=== PATIENT | female | born 1955 | race Caucasian/White ===

== ENCOUNTER 2019-05-22 22:55 | Inpatient (IN) | payer MEDICARE, OTHER ==
[2019-05-22] MEDS ORDERED: HEPARIN SODIUM,PORCINE 5,000 UNIT/ML 1 ML VIAL IV ONE (23:40)
[2019-05-22] MEDS ORDERED: HEPARIN SODIUM,PORCINE 5,000 UNIT/ML 1 ML VIAL IV PRN (23:40)
[2019-05-22 23:46] LABS: Glucose,Whole Blood 116 mg/dL (75-99)
[2019-05-22] MEDS ORDERED: SODIUM CHLORIDE 0.9% 1,000 ML IV STA (23:47)
--- NOTE | 2019-05-22 23:51 | ED ---
General Adult HPI - General Chief complaint: Weakness Stated complaint: Weakness Time Seen by Provider: 05/22/19 23:05 Source: EMS Mode of arrival: EMS Limitations: no limitations - History of Present Illness Initial comments: Dictation was produced using Epic[employer] dictation software. please excuse any grammatical, word or spelling errors. Chief Complaint: 63-year-old female with multiple comorbidities presents with weakness. History of Present Illness: Patient is 63-year-old female she was brought in by EMS for weakness. Patient was at home when she slid out of her chair and couldn't get up. Patient's , is a patient reports that he did not have enough strength to pick her back up and put her in the chair. EMS was called. EMS evaluated patient and recommended that she be brought to the emergency department. Patient denies any specific complaints. She feels generally weak. Patient reports that she's been getting weaker and weaker over the last month. 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 Patient has been on Keflex for the last several days as an antibiotic for the wound. reports that her wound at her left hip has been draining more than usual. Patient denies any history of atrial fibrillation. She is not on any anticoagulation medications. Patient has no history of cardiac disease. She was however once told that she had a murmur. She reports that because of her weakness she is unable to go upstairs. She's be en sleeping in a chair for the last month. The ROS documented in this emergency department record has been reviewed and confirmed by me. Those systems with pertinent positive or negative responses have been documented in the HPI. All other systems are other negative and/or noncontributory. PHYSICAL EXAM: General Impression: Alert and oriented x3, not in acute distress, malodorous, disheveled, obese HEENT: Normocephalic atraumatic, extra-ocular movements intact, pupils equal and reactive to light bilaterally, dry mucous membranes Cardiovascular: Irregularly irregular Chest: Lungs clear to auscultation bilaterally, no rhonchi, no wheeze, no rales Abdomen: Bowel sounds present, abdomen soft, non-tender, non-distended, no organomegaly, obese Musculoskeletal: Unable to palpate lower DP or PT pulses because of patient's body habitus Motor: no focal deficits noted Neurological: CN II-XII grossly intact, no focal motor or sensory deficits noted Skin: Hyperpigmented and erythematous rash to the bilateral anterior tibial areas, wound opening to the left hip with packing in place and extrusion of fibrinous tissue Psych: Normal affect and mood ED course: 63-year-old female presents with generalized weakness. Patient is currently undergoing treatment for chronic wounds. She is on antibiotics for these. Upon arrival shows blood pressure 96/40. Patient's history of hypertension and reports that her blood pressure is lower than usual. EKG upon arrival shows atrial fibrillation without rapid ventricular rate. Patient denies any history of panic coagulation medications or dysrhythmia. Patient started on heparin. Patient denies any pain complaints at this time. She denies any chest pain or shortness of breath.Laboratory evaluation obtained. Patient's hemoglobin of 9.3. This is around patient's baseline. Metabolic panel shows anion gap acidosis, patient is creatinine 3.43 with a BUN of 58. Urinalysis obtained showing 1+ ketones with no findings to suggest urinary tract infection. Rest of labs resulted. Coag panel unremarkable. Venous blood gas shows normal pH. Lactic acid level is 1.7. X-ray was reviewed by myself pending radiology read. Patient be admitted for new onset atrial fibrillation, acute kidney injury. This point in infection is part of the differential however less likely. She has pending urine cultures and blood cultures. Patient given intravenous fluid boluses and started on mean maintenance IV fluids. Nephrology be consulted. EKG interpretation: Ventricular rate 89, atrial fibrillation, care is 84, QTc 459. No old EKG for comparison. - Related Data Home Medications Medication Instructions Recorded Confirmed ALPRAZolam [Xanax] 2 mg PO TID PRN 04/11/14 05/22/19 Acetaminophen-Codeine 300-30mg 1 tab PO Q6H PRN 04/11/14 05/22/19 [Tylenol w/codeine #3] Lisinopril 40 mg PO DAILY 04/11/14 05/22/19 metFORMIN HCL 500 mg PO BID 04/11/14 05/22/19 Cephalexin [Keflex] 500 mg PO QID 05/22/19 05/22/19 Cholecalciferol [Vitamin D3 (25 1,000 unit PO DAILY 05/22/19 05/22/19 Mcg = 1000 Iu)] Ferrous Sulfate [Feosol] 325 mg PO BID 05/22/19 05/22/19 Hydrochlorothiazide [Hydrodiuril] 25 mg PO DAILY 05/22/19 05/22/19 Levothyroxine Sodium [Synthroid] 25 mcg PO DAILY 05/22/19 05/22/19 Metoprolol Tartrate [Lopressor] 100 mg PO BID 05/22/19 05/22/19 Sertraline HCl [Zoloft] 75 mg PO DAILY 05/22/19 05/22/19 Allergies Allergy/AdvReac Type Severity Reaction Status Date / Time amoxicillin Allergy Anaphylaxis Verified 05/22/19 23:10 ibuprofen [From Motrin] Allergy Unknown Verified 05/22/19 23:10 Penicillins Allergy Anaphylaxis Verified 05/22/19 23:10 Review of Systems ROS Statement: Those systems with pertinent positive or pertinent negative responses have been documented in the HPI. ROS Other: All systems not noted in ROS Statement are negative. Past Medical History Past Medical History: Diabetes Mellitus, Hypertension Additional Past Medical History / Comment(s): anemia, chronic wound to LLE, History of Any Multi-Drug Resistant Organisms: None Reported Past Surgical History: Cholecystectomy, Orthopedic Surgery Additional Past Surgical History / Comment(s): L femur surgery with sussy insertion, R wrist surgery, I& D to left hip, Past Anesthesia/Blood Transfusion Reactions: No Reported Reaction Past Psychological History: Bipolar Smoking Status: Never smoker Past Alcohol Use History: None Reported Past Drug Use History: None Reported General Exam Limitations: no limitations Course Vital Signs 05/22/19 05/23/19 23:06 00:24 Temperature 98.1 F Pulse Rate 96 75 Respiratory 18 19 Rate Blood Pressure 96/40 106/59 O2 Sat by Pulse 96 99 Oximetry Medical Decision Making - Lab Data Result diagrams: 05/22/19 23:11 05/22/19 23:11 Lab Results 05/22/19 05/22/19 05/22/19 Range/Units 23:11 23:11 23:11 WBC 9.4 (3.8-10.6) k/uL RBC 3.76 L (3.80-5.40) m/uL Hgb 9.3 L (11.4-16.0) gm/dL Hct 30.0 L (34.0-46.0) % MCV 79.9 L (80.0-100.0) fL MCH 24.7 L (25.0-35.0) pg MCHC 31.0 (31.0-37.0) g/dL RDW 16.5 H (11.5-15.5) % Plt Count 339 (150-450) k/uL Neutrophils % 82 % Lymphocytes % 8 % Monocytes % 8 % Eosinophils % 1 % Basophils % 1 % Neutrophils # 7.7 (1.3-7.7) k/uL Lymphocytes # 0.7 L (1.0-4.8) k/uL Monocytes # 0.7 (0-1.0) k/uL Eosinophils # 0.1 (0-0.7) k/uL Basophils # 0.1 (0-0.2) k/uL Hypochromasia Slight Anisocytosis Slight Microcytosis Slight Sodium 139 (137-145) mmol/L Potassium 3.8 (3.5-5.1) mmol/L Chloride 107 (98-107) mmol/L Carbon Dioxide 19 L (22-30) mmol/L Anion Gap 13 mmol/L BUN 58 H (7-17) mg/dL Creatinine 3.43 H (0.52-1.04) mg/dL Est GFR (CKD-EPI)AfAm 15 (>60 ml/min/1.73 sqM) Est GFR (CKD-EPI)NonAf 13 (>60 ml/min/1.73 sqM) Glucose 123 H (74-99) mg/dL POC Glucose (mg/dL) (75-99) mg/dL POC Glu Patch Driller ID Plasma Lactic Acid Ehsan (0.7-2.0) mmol/L Calcium 8.9 (8.4-10.2) mg/dL Total Bilirubin 0.4 (0.2-1.3) mg/dL AST 34 (14-36) U/L ALT 16 (9-52) U/L Alkaline Phosphatase 98 (38-126) U/L Troponin I <0.012 (0.000-0.034) ng/mL Total Protein 6.3 (6.3-8.2) g/dL Albumin 3.0 L (3.5-5.0) g/dL Urine Color Urine Appearance (Clear) Urine pH (5.0-8.0) Ur Specific [place] (1.001-1.035) Urine Protein (Negative) Urine Glucose (UA) (Negative) Urine Ketones (Negative) Urine Blood (Negative) Urine Nitrite (Negative) Urine Bilirubin (Negative) Urine Urobilinogen (<2.0) mg/dL Ur Leukocyte Esterase (Negative) Urine RBC (0-5) /hpf Urine WBC (0-5) /hpf Urine WBC Clumps (None) /hpf Ur Squamous Epith Cells (0-4) /hpf Amorphous Sediment (None) /hpf Urine Bacteria (None) /hpf Hyaline Casts (0-2) /lpf Urine Mucus (None) /hpf 05/22/19 05/22/19 05/22/19 Range/Units 23:11 23:11 23:45 WBC (3.8-10.6) k/uL RBC (3.80-5.40) m/uL Hgb (11.4-16.0) gm/dL Hct (34.0-46.0) % MCV (80.0-100.0) fL MCH (25.0-35.0) pg MCHC (31.0-37.0) g/dL RDW (11.5-15.5) % Plt Count (150-450) k/uL Neutrophils % % Lymphocytes % % Monocytes % % Eosinophils % % Basophils % % Neutrophils # (1.3-7.7) k/uL Lymphocytes # (1.0-4.8) k/uL Monocytes # (0-1.0) k/uL Eosinophils # (0-0.7) k/uL Basophils # (0-0.2) k/uL Hypochromasia Anisocytosis Microcytosis Sodium (137-145) mmol/L Potassium (3.5-5.1) mmol/L Chloride (98-107) mmol/L Carbon Dioxide (22-30) mmol/L Anion Gap mmol/L BUN (7-17) mg/dL Creatinine (0.52-1.04) mg/dL Est GFR (CKD-EPI)AfAm (>60 ml/min/1.73 sqM) Est GFR (CKD-EPI)NonAf (>60 ml/min/1.73 sqM) Glucose (74-99) mg/dL POC Glucose (mg/dL) 116 H (75-99) mg/dL POC Glu Patch Driller ID Maryam Salgado Plasma Lactic Acid Ehsan 1.7 (0.7-2.0) mmol/L Calcium (8.4-10.2) mg/dL Total Bilirubin (0.2-1.3) mg/dL AST (14-36) U/L ALT (9-52) U/L Alkaline Phosphatase (38-126) U/L Troponin I (0.000-0.034) ng/mL Total Protein (6.3-8.2) g/dL Albumin (3.5-5.0) g/dL Urine Color Yellow Urine Appearance Cloudy H (Clear) Urine pH 5.0 (5.0-8.0) Ur Specific [place] 1.027 (1.001-1.035) Urine Protein 1+ H (Negative) Urine Glucose (UA) Negative (Negative) Urine Ketones 1+ H (Negative) Urine Blood Small H (Negative) Urine Nitrite Negative (Negative) Urine Bilirubin 1+ H (Negative) Urine Urobilinogen 6.0 (<2.0) mg/dL Ur Leukocyte Esterase Trace H (Negative) Urine RBC 5 (0-5) /hpf Urine WBC 5 (0-5) /hpf Urine WBC Clumps Rare H (None) /hpf Ur Squamous Epith Cells 9 H (0-4) /hpf Amorphous Sediment Few H (None) /hpf Urine Bacteria Rare H (None) /hpf Hyaline Casts 71 H (0-2) /lpf Urine Mucus Rare H (None) /hpf Disposition Clinical Impression: GARRY (acute kidney injury), New onset atrial fibrillation Disposition: ADMITTED IP TO THIS HOSP Condition: Fair Referrals: Juju Hernandez MD [Primary Care Provider] - 1-2 days Decision Time: 01:13
[2019-05-22 23:57] LABS: Anisocytosis Slight; Basophils # (A) 0.1 k/uL (0-0.2); Basophils % (A) 1 %; Eosinophils # (A) 0.1 k/uL (0-0.7); Eosinophils % (A) 1 %; HGB 9.3 gm/dL (11.4-16.0); Hypochromasia Slight; Lymphocytes # (A) 0.7 k/uL (1.0-4.8); Lymphocytes % (A) 8 %; MCH 24.7 pg (25.0-35.0); MCV 79.9 fL (80.0-100.0); Mean Platelet Volume 7.2; Microcytosis Slight; Monocytes # (A) 0.7 k/uL (0-1.0); Monocytes % (A) 8 %; Neutrophils # (A) 7.7 k/uL (1.3-7.7); Neutrophils % (A) 82 %; Platelet Count 339 k/uL (150-450); RBC 3.76 m/uL (3.80-5.40); RDW 16.5 % (11.5-15.5); WBC 9.4 k/uL (3.8-10.6)
[2019-05-23 00:04] LABS: Amorphous Sediment,Urine Few /hpf; Appearance,Urine Cloudy (Clear); Bacteria,Urine Rare /hpf; Bilirubin,Urine 1+ (Negative); Blood,Urine Small (Negative); Color,Urine Yellow; Glucose,Urine (UA) Negative (Negative); Hyaline Casts,Urine 71 /lpf (0-2); Ketones,Urine 1+ (Negative); Leukocyte Esterase,Urine Trace (Negative); Mucus,Urine Rare /hpf; Nitrite,Urine Negative (Negative); Protein,Urine 1+ (Negative); RBC,Urine 5 /hpf (0-5); Specific Gravity,Urine 1.027 (1.001-1.035); Squamous Epithelial Cell,Urine 9 /hpf (0-4)
[2019-05-23 00:12] LABS: Calcium 8.9 mg/dL (8.4-10.2); Potassium 3.8 mmol/L (3.5-5.1); Total Bilirubin 0.4 mg/dL (0.2-1.3); Total Protein 6.3 g/dL (6.3-8.2)
[2019-05-23 00:52] LABS: VBG PH 7.34 (7.31-7.41)
[2019-05-23] MEDS ORDERED: ONDANSETRON 4 MG/2 ML VIAL IVP PRN (00:57)
[2019-05-23] MEDS ORDERED: ACETAMINOPHEN TAB 325 MG TAB PO PRN (00:57)
[2019-05-23] MEDS ORDERED: NALOXONE 0.4 MG/ML 1 ML VIAL IV PRN (00:57)
[2019-05-23 01:09] LABS: Partial Thromboplastin Time 24.9 sec (22.0-30.0); Prothrombin Time 10.6 sec (9.0-12.0)
--- NOTE | 2019-05-23 01:18 | XR ---
EXAMINATION TYPE: XR chest 2V DATE OF EXAM: 05/23/2019 COMPARISON: NONE HISTORY: Body weakness TECHNIQUE: Frontal and lateral views of the chest are obtained. FINDINGS: There is an enlarged heart. There is no heart failure. Lungs are clear of infiltrate. Ther e are no hilar masses. Costophrenic angles are clear. There are chest leads. IMPRESSION: Cardiomegaly. No active cardiopulmonary disease.
[2019-05-23] MEDS: HEPARIN SOD,PORK IN 0.45% NACL 25,000 UNIT in 0.45% NACL 1 250ML.BAG IV SCH ×2 (01:35→21:07)
[2019-05-23 02:00] LABS: Glucose,Whole Blood 125 mg/dL (75-99)
[2019-05-23 07:32] LABS: Anisocytosis Slight; Basophils # (A) 0.1 k/uL (0-0.2); Basophils % (A) 1 %; Eosinophils # (A) 0.1 k/uL (0-0.7); Eosinophils % (A) 2 %; HCT 26.9 % (34.0-46.0); HGB 8.5 gm/dL (11.4-16.0); Hypochromasia Marked; Lymphocytes # (A) 0.9 k/uL (1.0-4.8); Lymphocytes % (A) 11 %; MCH 25.8 pg (25.0-35.0); MCHC 31.5 g/dL (31.0-37.0); MCV 81.9 fL (80.0-100.0); Mean Platelet Volume 6.8; Monocytes # (A) 0.7 k/uL (0-1.0); Monocytes % (A) 9 %; Neutrophils # (A) 6.4 k/uL (1.3-7.7); Neutrophils % (A) 77 %; Platelet Count 275 k/uL (150-450); RBC 3.28 m/uL (3.80-5.40); RDW 16.6 % (11.5-15.5); WBC 8.3 k/uL (3.8-10.6)
[2019-05-23 07:57] LABS: Calcium 8.2 mg/dL (8.4-10.2); Magnesium 1.9 mg/dL (1.6-2.3); Potassium 3.9 mmol/L (3.5-5.1)
--- NOTE | 2019-05-23 08:47 | P.CRDCN ---
History of Present Illness Consult date: 05/23/19 History of present illness: This is a 63-year-old female who was admitted to the hospital with complaints of extreme weakness. Apparently she fell off the chair yesterday and could not get up. could not help her and called 911. She was subsequently brought to the emergency room. There is no specific complaints of chest pain. She does complain of shortness of breath with any activity. She was found to be in atrial fibrillation with controlled ventricular response. Her blood work showed evidence of renal failure with creatinine in the range of 3.4. She has history of hypertension and also diabetes. She had some ulcers on her hip was she had a plastic surgery. Apparently she has been taking some antibiotics for the last week or so. At the time of my examination patient is in intensive care unit. Patient is lying flat and doesn't seem to be in acute distress. She does have mild edema and also ulcerations the leg. Patient has received IV fluids since admission. Her creatinine has shown some improvement. Chest x-ray showed evidence of cardiomegaly with mild vascular congestion. Her proBNP is elevated. It appears that patient may have cardiomyopathy with chronic CHF and atrial fibrillation. She has been on Lopressor 100 mg by mouth twice a day along with lisinopril and also hydrochlorothiazide. We'll going to resume Lopressor at 50 mg by mouth twice a day and hold both lisinopril and hydrochlorothiazide. Patient is going to have an echocardiogram. Further recommendations depend upon clinical course. A renal consult is also requested. Review of Systems As per the chart Past Medical History Past Medical History: Diabetes Mellitus, Hypertension Additional Past Medical History / Comment(s): anemia, chronic wound to LLE, History of Any Multi-Drug Resistant Organisms: None Reported Past Surgical History: Cholecystectomy, Orthopedic Surgery Additional Past Surgical History / Comment(s): L femur surgery with sussy insertion, R wrist surgery, I& D to left hip, Past Anesthesia/Blood Transfusion Reactions: No Reported Reaction Past Psychological History: No Psychological Hx Reported, Bipolar Smoking Status: Never smoker Past Alcohol Use History: None Reported Past Drug Use History: None Reported - Past Family History Mother Family Medical History: Diabetes Mellitus Additional Family Medical History / Comment(s): polio, Father Family Medical History: Myocardial Infarction ([place]) Additional Family Medical History / Comment(s): at 40 of [place] Medications and Allergies Home Medications Medication Instructions Recorded Confirmed Type ALPRAZolam [Xanax] 2 mg PO TID PRN 04/11/14 05/22/19 History Acetaminophen-Codeine 300-30mg 1 tab PO Q6H PRN 04/11/14 05/22/19 History [Tylenol w/codeine #3] Lisinopril 40 mg PO DAILY 04/11/14 05/22/19 History metFORMIN HCL 500 mg PO BID 04/11/14 05/22/19 History Cephalexin [Keflex] 500 mg PO QID 05/22/19 05/22/19 History Cholecalciferol [Vitamin D3 (25 1,000 unit PO DAILY 05/22/19 05/22/19 History Mcg = 1000 Iu)] Ferrous Sulfate [Feosol] 325 mg PO BID 05/22/19 05/22/19 History Hydrochlorothiazide [Hydrodiuril] 25 mg PO DAILY 05/22/19 05/22/19 History Levothyroxine Sodium [Synthroid] 25 mcg PO DAILY 05/22/19 05/22/19 History Metoprolol Tartrate [Lopressor] 100 mg PO BID 05/22/19 05/22/19 History Sertraline HCl [Zoloft] 75 mg PO DAILY 05/22/19 05/22/19 History Allergies Allergy/AdvReac Type Severity Reaction Status Date / Time amoxicillin Allergy Anaphylaxis Verified 05/22/19 23:10 ibuprofen [From Motrin] Allergy Unknown Verified 05/22/19 23:10 Penicillins Allergy Anaphylaxis Verified 05/22/19 23:10 Physical Exam Vitals: Vital Signs Temp Pulse Pulse Resp BP BP Pulse Ox 05/23/19 06:00 82 34 H 94/81 98 05/23/19 05:00 91 22 75/46 97 05/23/19 04:00 97.7 F 79 20 90/57 05/23/19 03:00 80 15 104/53 05/23/19 02:00 98.0 F 80 22 95/62 97 05/23/19 01:36 97.7 F 76 18 106/48 96 05/23/19 01:32 98.0 F 80 22 104/53 97 05/23/19 00:24 75 19 106/59 99 05/22/19 23:06 98.1 F 96 18 96/40 96 Intake and Output 05/22/19 05/23/19 05/23/19 22:59 06:59 14:59 Intake Total 500 Output Total 200 Balance 300 Intake: IV 500 Sodium Chloride 0.9% 1, 500 000 ml @ 100 mls/hr IV . Q10H [facility] Rx#:[id number] Output: Urine 200 Other: Voiding Method Bedpan Weight 101.151 kg GENERAL EXAM: Patient is alert and oriented and doesn't appear to be in any acute distress HEENT: Normocephalic. Normal reaction of pupils, equal size, normal range of extraocular motion. No erythema or exudates in the throat. NECK: No masses, no nuchal rigidity. CHEST: No chest wall deformity. LUNGS: Diminished breath sounds HEART: S1 and S2 normal with no audible mumurs or gallops. Irregular rhythm ABDOMEN: No hepatosplenomegaly, normal bowel sounds, no guarding or rigidity. SKIN: No rashes CENTRAL NERVOUS SYSTEM: No focal deficits. EXTREMITIES: Ulceration and blistering of the right leg. Patient had plastic surgery in the hip area Results 05/23/19 07:15 05/23/19 07:15 Cardiac Enzymes 05/22/19 05/22/19 Range/Units 23:11 23:11 AST 34 (14-36) U/L Troponin I <0.012 (0.000-0.034) ng/mL Coagulation 05/23/19 05/23/19 Range/Units 00:35 07:15 PT 10.6 (9.0-12.0) sec APTT 24.9 34.0 H (22.0-30.0) sec CBC 05/22/19 05/23/19 Range/Units 23:11 07:15 WBC 9.4 8.3 (3.8-10.6) k/uL RBC 3.76 L 3.28 L (3.80-5.40) m/uL Hgb 9.3 L 8.5 L (11.4-16.0) gm/dL Hct 30.0 L 26.9 L (34.0-46.0) % Plt Count 339 275 (150-450) k/uL Comprehensive Metabolic Panel 05/22/19 05/23/19 Range/Units 23:11 07:15 Sodium 139 139 (137-145) mmol/L Potassium 3.8 3.9 (3.5-5.1) mmol/L Chloride 107 111 H (98-107) mmol/L Carbon Dioxide 19 L 19 L (22-30) mmol/L BUN 58 H 55 H (7-17) mg/dL Creatinine 3.43 H 2.86 H (0.52-1.04) mg/dL Glucose 123 H 106 H (74-99) mg/dL Calcium 8.9 8.2 L (8.4-10.2) mg/dL AST 34 (14-36) U/L ALT 16 (9-52) U/L Alkaline Phosphatase 98 (38-126) U/L Total Protein 6.3 (6.3-8.2) g/dL Albumin 3.0 L (3.5-5.0) g/dL Current Medications Generic Name Dose Route Start Last Admin Trade Name Freq PRN Reason Stop Dose Admin Acetaminophen 650 mg 05/23/19 00:57 Tylenol Tab PO Q6HR PRN Mild Pain or Fever > 100.5 Heparin Sodium (Porcine) 0 unit 05/22/19 23:40 Heparin IV PER PROTOCOL PRN Low PTT Protocol Heparin Sodium/Sodium Chloride 250 mls @ 10.004 mls/hr 05/22/19 23:45 05/23/19 01:35 25,000 unit/ Sodium Chloride IV 9.89 units/kg/hr .Q24H RACHEL 10.004 mls/hr Administration Protocol 9.89 UNITS/KG/HR Sodium Chloride 1,000 mls @ 100 mls/hr 05/23/19 01:00 Saline 0.9% IV .Q10H RACHEL Naloxone HCl 0.2 mg 05/23/19 00:57 Narcan IV Q2M PRN Opioid Reversal Ondansetron HCl 4 mg 05/23/19 00:57 Zofran IVP Q8HR PRN Nausea And Vomiting Pantoprazole Sodium 40 mg 05/23/19 07:30 Protonix PO AC-BRKFST RACHEL Intake and Output 05/22/19 05/23/19 05/23/19 22:59 06:59 14:59 Intake Total 500 Output Total 200 Balance 300 Intake: IV 500 Sodium Chloride 0.9% 1, 500 000 ml @ 100 mls/hr IV . Q10H [facility] Rx#:[id number] Output: Urine 200 Other: Voiding Method Bedpan Weight 101.151 kg 05/23/19 07:15 05/23/19 07:15 EKG Interpretations (text) Atrial fibrillation with controlled ventricular response Assessment and Plan (1) Hypertension Current Visit: Yes Status: Acute Code(s): I10 - ESSENTIAL (PRIMARY) HYPERTENSION SNOMED Code(s): 71204730 (2) GARRY (acute kidney injury) Current Visit: Yes Status: Acute Code(s): N17.9 - ACUTE KIDNEY FAILURE, UNSPECIFIED SNOMED Code(s): 06107423 (3) New onset atrial fibrillation Current Visit: Yes Status: Acute Code(s): I48.91 - UNSPECIFIED ATRIAL FIBRILLATION SNOMED Code(s): 80183547 (4) Anemia Current Visit: No Status: Acute Priority: High Code(s): D64.9 - ANEMIA, UNSPECIFIED SNOMED Code(s): 329613417 (5) Cardiomyopathy Current Visit: Yes Status: Acute Code(s): I42.9 - CARDIOMYOPATHY, UNSPECIFIED SNOMED Code(s): 65188428 Plan: I'll continue with the beta alejandro. Echocardiogram to be done. We'll hold her lisinopril and hydrochlorothiazide. Renal consult. Further recommendations depend upon the clinical course
[2019-05-23] MEDS ORDERED: ALPRAZolam 1 MG TAB PO PRN (09:28)
[2019-05-23] MEDS ORDERED: metFORMIN 500 MG TAB PO SCH (09:30)
[2019-05-23] MEDS: SODIUM CHLORIDE 0.9% 1,000 ML IV SCH ×3 (09:34→20:50)
[2019-05-23] MEDS: CHOLECALCIFEROL 1,000 UNIT TAB PO SCH (09:56)
[2019-05-23] MEDS: FERROUS SULFATE 325 MG TAB PO SCH ×2 (09:56→20:47)
[2019-05-23] MEDS: PANTOPRAZOLE 40 MG TABLET PO SCH (09:56)
[2019-05-23] MEDS: HYDROCHLOROTHIAZIDE 25 MG TAB PO SCH (09:56)
[2019-05-23] MEDS: SERTRALINE 25 MG TAB PO SCH (09:56)
[2019-05-23] MEDS: LEVOTHYROXINE 25 MCG TAB PO SCH (09:56)
[2019-05-23 11:51] LABS: Glucose,Whole Blood 110 mg/dL (75-99)
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
--- NOTE | 2019-05-23 13:59 | US ---
EXAMINATION TYPE: US renals and bladder DATE OF EXAM: 05/23/2019 COMPARISON: NONE CLINICAL HISTORY: renal failure. ICU patient with renal failure EXAM MEASUREMENTS: Right Kidney: 10.3 x 5.1 x 4.0 cm Left Kidney: 10.6 x 5.0 x 4.8 cm Right Kidney: no evidence of hydronephrosis Left Kidney: cystic area mid = 1.5 x 1.7 x 1.6cm Bladder: appears wnl Bilateral Jets seen: no There are probable parapelvic cysts involving the left kidney. There is no evidence of hydronephrosis . IMPRESSION: PROBABLE PARAPELVIC CYSTS, LEFT KIDNEY.
[2019-05-23] MEDS: CEPHALEXIN 500 MG CAP PO SCH ×3 (14:00→20:47)
[2019-05-23 16:53] LABS: Glucose,Whole Blood 99 mg/dL (75-99)
[2019-05-23] MEDS: SODIUM BICARBONATE TAB 650 MG TAB PO SCH ×2 (17:36→20:50)
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
[2019-05-23 20:43] LABS: Glucose,Whole Blood 95 mg/dL (75-99)
[2019-05-23] MEDS: METOPROLOL TARTRATE 50 MG TAB PO SCH (20:46)
[2019-05-24 05:16] LABS: Anisocytosis Slight; Basophils % (A) 0 %; Eosinophils # (A) 0.2 k/uL (0-0.7); Eosinophils % (A) 3 %; HCT 26.4 % (34.0-46.0); HGB 8.3 gm/dL (11.4-16.0); Hypochromasia Marked; Lymphocytes # (A) 0.9 k/uL (1.0-4.8); Lymphocytes % (A) 15 %; MCH 25.7 pg (25.0-35.0); MCHC 31.3 g/dL (31.0-37.0); MCV 82.3 fL (80.0-100.0); Mean Platelet Volume 7.9; Monocytes # (A) 0.4 k/uL (0-1.0); Monocytes % (A) 8 %; Neutrophils % (A) 72 %; Platelet Count 211 k/uL (150-450); Poikilocytosis Slight; RBC 3.21 m/uL (3.80-5.40); RDW 16.2 % (11.5-15.5); WBC 5.6 k/uL (3.8-10.6)
[2019-05-24 05:36] LABS: Potassium 4.2 mmol/L (3.5-5.1)
[2019-05-24] MEDS: Acetaminophen-Codeine 300-30mg TAB PO PRN ×3 (06:21→20:44)
[2019-05-24] MEDS: PANTOPRAZOLE 40 MG TABLET PO SCH (06:21)
[2019-05-24] MEDS: LEVOTHYROXINE 25 MCG TAB PO SCH (06:21)
[2019-05-24] MEDS: SODIUM CHLORIDE 0.9% 1,000 ML IV SCH ×2 (06:25→17:55)
[2019-05-24 06:48] LABS: Glucose,Whole Blood 101 mg/dL (75-99)
[2019-05-24] MEDS: CHOLECALCIFEROL 1,000 UNIT TAB PO SCH (09:11)
[2019-05-24] MEDS: SODIUM BICARBONATE TAB 650 MG TAB PO SCH ×4 (09:11→20:44)
[2019-05-24] MEDS: SERTRALINE 25 MG TAB PO SCH (09:11)
[2019-05-24] MEDS: CEPHALEXIN 500 MG CAP PO SCH (09:11)
[2019-05-24] MEDS: FERROUS SULFATE 325 MG TAB PO SCH ×2 (09:11→20:44)
[2019-05-24] MEDS: HYDROCHLOROTHIAZIDE 25 MG TAB PO SCH (09:12)
[2019-05-24 10:14] LABS: Iron Saturation 5.33 (12.00-45.00)
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
[2019-05-24 11:57] LABS: Glucose,Whole Blood 92 mg/dL (75-99)
[2019-05-24] MEDS: METOPROLOL TARTRATE 50 MG TAB PO SCH (11:57)
--- NOTE | 2019-05-24 12:01 | ECHOF ---
Referral Reason:Chest pain and cardiomyopathy MEASUREMENTS -------- HEIGHT: 152.4 cm WEIGHT: 103.9 kg BP: 93/2 RVIDd: 2.9 cm (< 3.3) IVSd: 1.1 cm (0.6 - 1.1) LVIDd: 5.0 cm (3.9 - 5.3) LVPWd: 1.1 cm (0.6 - 1.1) IVSs: 1.6 cm LVIDs: 3.5 cm LVPWs: 1.3 cm LA Diam: 3.4 cm (2.7 - 3.8) LAESV Index (A-L): 37.04 ml/m Ao Diam: 3.0 cm (2.0 - 3.7) AV Cusp: 1.8 cm (1.5 - 2.6) MV EXCURSION: 12.755 mm (> 18.000) MV EF SLOPE: 93 mm/s (70 - 150) EPSS: 0.8 cm AV maxP.42 mmHg AV meanP.67 mmHg RAP: 15.00 mmHg RVSP: 50.38 mmHg FINDINGS -------- Atrial fibrillation. This was a technically adequate study. The left ventricular size is normal. There is borderline concentric left ventricular hypertrophy. Overall left ventricular systolic function is normal with, an EF between 55 - 60 %. Left ventricul ar fillimg pressure cannot be estimated due to Atrial fibrillation. The right ventricle is normal in size. LA is moderately dilated 34-39 ml/m2 The right atrial size is normal. Interatrial and interventricular septum intact. The aortic valve is trileaflet, and appears structurally normal. No aortic stenosis or regurgitation. The mitral valve leaflets are mildly thickened. [id number] mitral regurgitation is present. Mild tricuspid regurgitation present. There is moderate pulmonary hypertension. The right ventric ular systolic pressure, as measured by Doppler, is 50.38mmHg. Trace/mild (physiologic) pulmonic regurgitation. The aortic root size is normal. The inferior vena cava is dilated with poor inspiratory collapse which is consistent with estimated r ight atrial pressure of 15 mmHg. There is no pericardial effusion. CONCLUSIONS -------- 1. Atrial fibrillation. 2. This was a technically adequate study. 3. The left ventricular size is normal. 4. There is borderline concentric left ventricular hypertrophy. 5. Overall left ventricular systolic function is normal with, an EF between 55 - 60 %. 6. Left ventricular fillimg pressure cannot be estimated due to Atrial fibrillation. 7. LA is moderately dilated 34-39 ml/m2 8. The aortic valve is trileaflet, and appears structurally normal. No aortic stenosis or regurgitati on. 9. The mitral valve leaflets are mildly thickened. 10. Kvxv-sq-okjkoeez mitral regurgitation is present. 11. Mild tricuspid regurgitation present. 12. There is moderate pulmonary hypertension. 13. Trace/mild (physiologic) pulmonic regurgitation. 14. The aortic root size is normal. 15. The inferior vena cava is dilated with poor inspiratory collapse which is consistent with estimat ed right atrial pressure of 15 mmHg. 16. There is no pericardial effusion. INTEGRATION LEAD: Yamilet Tucker RDCS
[2019-05-24 12:10] LABS: Glucose,Whole Blood 108 mg/dL (75-99)
[2019-05-24] MEDS: INSULIN ASPART (NovoLOG) 100 UNIT/ML VIAL SQ SCH ×3 (13:05→20:28)
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
--- NOTE | 2019-05-24 16:50 | P.PN ---
Subjective Progress Note Date: 05/24/19 This is a 63-year-old female with history of diabetes and hypertension who was brought to the hospital with extreme weakness. She was found to be in atrial fibrillation with controlled and corresponds and also had evidence of acute renal failure. Patient also seemed to be dehydrated. She is also has some ulcers in the legs. She seemed to be much more comfortable today. Her heart rate is controlled. Her blood pressure is borderline. We'll going Back the dose of the metoprolol to 25 mg by mouth twice a day. Her echo showed good LV function. We'll continue rest of the management. No further cardiac workup at this time. She is also on anticoagulation therapy Objective - Vital Signs Vital signs: Vital Signs Temp 97.9 F 05/24/19 16:00 Pulse 63 05/24/19 16:00 Resp 18 05/24/19 16:00 BP 97/54 05/24/19 16:00 Pulse Ox 99 05/24/19 16:00 Intake & Output 05/23/19 05/24/19 05/24/19 18:59 06:59 18:59 Intake Total 2112.535 7098.325 800 Output Total 200 100 400 Balance 1079.699 960.325 400 Weight 104 kg Intake: IV 1200 800 800 Sodium Chloride 0.9% 1, 1200 800 800 000 ml @ 100 mls/hr IV . Q10H RACHEL Rx#:[id number] Intake, IV Titration 79.699 260.325 Amount Heparin Sod,Pork in 0.45% 79.699 260.325 NaCl 25,000 unit In 0.45 % NaCl 1 250ml.bag @ 9.89 UNITS/KG/HR 10.004 mls/ hr IV .Q24H RACHEL Rx#: [id number] Output: Urine 200 100 400 Other: Voiding Method Incontinent Incontinent Incontinent # Voids 1 1 # Bowel Movements 1 - Exam GENERAL EXAM: Patient is alert and oriented and doesn't appear to be in any acute distress HEENT: Normocephalic. Normal reaction of pupils, equal size, normal range of extraocular motion. No erythema or exudates in the throat. NECK: No masses, no nuchal rigidity. CHEST: No chest wall deformity. LUNGS: Equal air entry with no crackles or wheeze. HEART: S1 and S2 normal with no audible mumurs or gallops. Regular rhythm, femorals equal on both sides.. ABDOMEN: No hepatosplenomegaly, normal bowel sounds, no guarding or rigidity. SKIN: No rashes CENTRAL NERVOUS SYSTEM: No focal deficits. EXTREMITIES: Ulcers present - Labs CBC & Chem 7: 05/24/19 04:26 05/24/19 04:26 Labs: Abnormal Lab Results - Last 24 Hours (Table) 05/23/19 05/23/19 05/24/19 Range/Units 15:15 17:55 04:26 RBC 3.21 L (3.80-5.40) m/uL Hgb 8.3 L (11.4-16.0) gm/dL Hct 26.4 L (34.0-46.0) % RDW 16.2 H (11.5-15.5) % Lymphocytes # 0.9 L (1.0-4.8) k/uL APTT (22.0-30.0) sec Chloride (98-107) mmol/L Carbon Dioxide (22-30) mmol/L BUN (7-17) mg/dL Creatinine (0.52-1.04) mg/dL POC Glucose (mg/dL) (75-99) mg/dL Calcium (8.4-10.2) mg/dL Iron 12 L (50-170) ug/dL TIBC 225 L (228-460) ug/dL Iron Saturation 5.33 L (12.00-45.00) U Random Total Protein 29 H (<12) mg/dL 05/24/19 05/24/19 05/24/19 Range/Units 04:26 04:26 06:44 RBC (3.80-5.40) m/uL Hgb (11.4-16.0) gm/dL Hct (34.0-46.0) % RDW (11.5-15.5) % Lymphocytes # (1.0-4.8) k/uL APTT 46.3 H (22.0-30.0) sec Chloride 113 H (98-107) mmol/L Carbon Dioxide 19 L (22-30) mmol/L BUN 49 H (7-17) mg/dL Creatinine 2.10 H (0.52-1.04) mg/dL POC Glucose (mg/dL) 101 H (75-99) mg/dL Calcium 8.0 L (8.4-10.2) mg/dL Iron (50-170) ug/dL TIBC (228-460) ug/dL Iron Saturation (12.00-45.00) U Random Total Protein (<12) mg/dL 05/24/19 05/24/19 Range/Units 11:18 12:07 RBC (3.80-5.40) m/uL Hgb (11.4-16.0) gm/dL Hct (34.0-46.0) % RDW (11.5-15.5) % Lymphocytes # (1.0-4.8) k/uL APTT 58.5 H (22.0-30.0) sec Chloride (98-107) mmol/L Carbon Dioxide (22-30) mmol/L BUN (7-17) mg/dL Creatinine (0.52-1.04) mg/dL POC Glucose (mg/dL) 108 H (75-99) mg/dL Calcium (8.4-10.2) mg/dL Iron (50-170) ug/dL TIBC (228-460) ug/dL Iron Saturation (12.00-45.00) U Random Total Protein (<12) mg/dL Microbiology - Last 24 Hours (Table) 05/23/19 10:30 Gram Stain - Preliminary Hip - Left Wound Culture - Preliminary Gram Neg Bacilli 05/23/19 10:30 Gram Stain - Preliminary Leg - Left Wound Culture - Preliminary Pseudomonas spec 05/22/19 00:35 Blood Culture - Preliminary Blood No Growth after 24 hours 05/23/19 17:55 Urine Culture - Preliminary Urine,Catheterized 05/23/19 10:30 Anaerobic Culture - Preliminary Leg - Left 05/23/19 10:30 Anaerobic Culture - Preliminary Hip - Left Assessment and Plan (1) Hypertension Current Visit: Yes Status: Acute Code(s): I10 - ESSENTIAL (PRIMARY) HYPERTENSION SNOMED Code(s): 61315519 (2) GARRY (acute kidney injury) Current Visit: Yes Status: Acute Code(s): N17.9 - ACUTE KIDNEY FAILURE, UNSPECIFIED SNOMED Code(s): 02630303 (3) New onset atrial fibrillation Current Visit: Yes Status: Acute Code(s): I48.91 - UNSPECIFIED ATRIAL FIBRILLATION SNOMED Code(s): 70212086 (4) Anemia Current Visit: No Status: Acute Priority: High Code(s): D64.9 - ANEMIA, UNSPECIFIED SNOMED Code(s): 268044691 (5) Cardiomyopathy Current Visit: Yes Status: Acute Code(s): I42.9 - CARDIOMYOPATHY, UNSPECIFIED SNOMED Code(s): 19605267 Plan: Patient is currently stable from cardiac standpoint. Heart rate is controlled. Echo showed normal LV function. We'll continue current cardiac medications
[2019-05-24] MEDS ORDERED: HYDROPHILIC CREAM 180 GM TUBE TOPICAL SCH (17:00)
[2019-05-24 17:21] LABS: Glucose,Whole Blood 105 mg/dL (75-99)
[2019-05-24] MEDS: CEFEPIME 2 GM in SODIUM CHLORIDE 0.9% 100 ML IVPB SCH (17:54)
[2019-05-24] MEDS: APIXABAN 2.5 MG TABLET PO SCH (18:48)
--- NOTE | 2019-05-24 19:01 | PN ---
PROGRESS NOTE The patient is seen for followup for acute kidney injury. Her renal function is slightly improved. The patient's creatinine is down from 3.4 to 2.1 mg/dL. Previous creatinine was 0.7 in April of 2014. The patient has had good urine output. She is maintained on IV fluids at 100 mL an hour. She is eating. No complaints of nausea or vomiting. PHYSICAL EXAMINATION: On examination, blood pressure was 100/54, heart rate 76 per minute. She is afebrile. Examination of the heart S1, S2. Examination of the lungs, bilateral breath sounds are heard. Abdomen is soft, nontender. Examination lower extremities shows no significant edema. GLASS PRESSER exam grossly intact. LABS: Hemoglobin 8.3. Sodium 138, potassium 4.2, chloride 113, CO2 is 19, BUN 49, serum creatinine 2.1. ASSESSMENT: 1. Acute kidney injury associated with atrial fibrillation, hypotension, hypoperfusion currently improving. A prerenal component also noted from hypovolemia. The patient is maintained on IV fluids. I will decrease the rate to about 60 mL an hour. She is advised to continue to maintain good oral intake. 2. Possible underlying chronic kidney disease. Previous creatinine 0.7 in 2013, but UA shows evidence of proteinuria. 3. Type 2 diabetes. 4. Recent surgery for ulcer on the left hip with an open wound being followed by Infectious Disease. 5. Anemia. Iron saturation was 9% in 2013 and about 5% from yesterday. We will give her IV iron once this infection is controlled. PLAN: Decrease IV fluids, maintain good oral intake, IV iron in the next day or so, once the infection is controlled as we would like to avoid IV iron with ongoing active infections. MMODL / IJN: [id number] /
[2019-05-24 20:38] LABS: Glucose,Whole Blood 112 mg/dL (75-99)
[2019-05-24] MEDS: METOPROLOL TARTRATE 25 MG TAB PO SCH (20:44)
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
[2019-05-25 05:10] LABS: Basophils # (A) 0.1 k/uL (0-0.2); Basophils % (A) 1 %; Eosinophils # (A) 0.2 k/uL (0-0.7); Eosinophils % (A) 4 %; HGB 8.3 gm/dL (11.4-16.0); Hypochromasia Marked; Lymphocytes # (A) 0.5 k/uL (1.0-4.8); Lymphocytes % (A) 10 %; MCH 25.4 pg (25.0-35.0); MCHC 30.6 g/dL (31.0-37.0); MCV 83.2 fL (80.0-100.0); Mean Platelet Volume 7.7; Monocytes # (A) 0.3 k/uL (0-1.0); Monocytes % (A) 5 %; Neutrophils # (A) 4.5 k/uL (1.3-7.7); Neutrophils % (A) 80 %; Platelet Count 243 k/uL (150-450); Poikilocytosis Slight; RBC 3.25 m/uL (3.80-5.40); WBC 5.6 k/uL (3.8-10.6)
[2019-05-25] MEDS: PANTOPRAZOLE 40 MG TABLET PO SCH (05:18)
[2019-05-25] MEDS: LEVOTHYROXINE 25 MCG TAB PO SCH (05:19)
[2019-05-25] MEDS: CEFEPIME 2 GM in SODIUM CHLORIDE 0.9% 100 ML IVPB SCH (05:19)
[2019-05-25 05:23] LABS: Calcium 8.4 mg/dL (8.4-10.2); Potassium 4.4 mmol/L (3.5-5.1)
[2019-05-25] MEDS: INSULIN ASPART (NovoLOG) 100 UNIT/ML VIAL SQ SCH ×4 (06:55→20:52)
[2019-05-25 07:03] LABS: Glucose,Whole Blood 120 mg/dL (75-99)
[2019-05-25] MEDS: APIXABAN 2.5 MG TABLET PO SCH (08:45)
[2019-05-25] MEDS: SODIUM BICARBONATE TAB 650 MG TAB PO SCH ×4 (08:45→20:58)
[2019-05-25] MEDS: HYDROCHLOROTHIAZIDE 25 MG TAB PO SCH (08:45)
[2019-05-25] MEDS: METOPROLOL TARTRATE 25 MG TAB PO SCH ×2 (08:45→20:58)
[2019-05-25] MEDS: FERROUS SULFATE 325 MG TAB PO SCH ×2 (08:45→20:58)
[2019-05-25] MEDS: SERTRALINE 25 MG TAB PO SCH (08:45)
[2019-05-25] MEDS: CHOLECALCIFEROL 1,000 UNIT TAB PO SCH (08:45)
[2019-05-25] MEDS ORDERED: APIXABAN 5 MG TAB PO ONE (10:00)
--- NOTE | 2019-05-25 11:30 | PN ---
PROGRESS NOTE Patient is seen for followup for acute kidney injury. Renal function is improving. Patient's IV fluids were decreased yesterday to about 60 mL an hour. She is tolerating oral intake. PHYSICAL EXAMINATION: Blood pressure 118/99, heart rate 71 per minute. She is afebrile. Examination of the heart S1, S2. Examination of the lungs, bilateral breath sounds are heard. Abdomen is soft, nontender, obese. Examination of the lower extremities shows no significant edema. LABS: Show sodium 142, potassium 4.0, chloride 112, BUN 40, serum creatinine 1.7, hemoglobin 8.3 g/dL. ASSESSMENT: 1. Acute kidney injury, acute tubular necrosis, currently improving. IV fluids were decreased. I will continue with 60 mL/hour for now and then DC IV fluids tomorrow. 2. Urinary tract infection. Urine culture growing gram-negative bacilli. Maintained on antibiotics. 3. Recent surgery for ulcer on left hip with open wound, maintained on antibiotics, being followed by ID. 4. Anemia with severe iron deficiency. Will give her a dose of IV iron tomorrow. PLAN: IV iron in a.m. Continue antibiotics. Continue the saline for now. Encourage increased oral intake. MMODL / IJN: [id number] /
[2019-05-25 12:52] LABS: Glucose,Whole Blood 126 mg/dL (75-99)
--- NOTE | 2019-05-25 15:11 | P.PN ---
Subjective Patient is a pleasant 58-year-old female was admitted and is being treated for pseudomonal wound infection and possible urinary tract infection which is showing gram-negative bacilli along with new onset atrial fibrillation and acute renal failure with creatinine of 3.43 on admission came down to 1.77 with normal baseline of 0.65. Patient appears to be quite tight week and is complaining of some dizziness. Patient's heart rate is well controlled and patient was started on oral anti-coagulation. Constitutional: Is severely fatigued Cardio vascular: denied any chest pain, palpitations Gastrointestinal denied any nausea vomiting Pulmonary: Denied any shortness of breath cough Neurologic denied any new focal deficits All inpatient medications were reviewed and appropriate changes in these medications as dictated in the interval history and assessment and plan. Objective - Vital Signs Vital signs: Vital Signs Temp 98.3 F 05/25/19 08:00 Pulse 76 05/25/19 12:00 Resp 22 05/25/19 12:00 BP 97/55 05/25/19 12:00 Pulse Ox 89 L 05/25/19 12:00 Intake & Output 05/24/19 05/25/19 05/25/19 18:59 06:59 18:59 Intake Total 1180.481 462 Output Total 800 200 200 Balance 380.481 -200 262 Weight 107 kg Intake: IV 1040 240 Sodium Chloride 0.9% 1, 1040 240 000 ml @ 60 mls/hr IV . [id number] [facility] Rx#:[id number] Intake, IV Titration 140.481 Amount Heparin Sod,Pork in 0.45% 140.481 NaCl 25,000 unit In 0.45 % NaCl 1 250ml.bag @ 9.89 UNITS/KG/HR 10.004 mls/ hr IV .Q24H [facility] Rx#: [id number] Oral 222 Output: Urine 800 200 200 Other: Voiding Method Incontinent Incontinent Incontinent # Bowel Movements 1 - Exam GEN. APPEARANCE: Obese. It appears to be lethargic HEAD EXAM: atraumatic, normocephalic, normal inspection EYE EXAM: No pallor. No icterus. white discharge at the corners of the eyes noticed ENT EXAM: Poor oral hygiene. Multiple dental caries. NECK EXAM: No thyromegaly. RESPIRATORY EXAM: Bilateral breath sounds are positive. No wheezing or crackles. CARDIOVASCULAR EXAM: Irregularly irregular. S1 and S2 heard. GI/ABDOMINAL EXAM: soft, normal bowel sounds. Absent: distended, tenderness, guarding, rebound, rigid. Excoriation of the skin in both inguinal areas. EXTREMITIES EXAM: Left lower leg - an ulcer of left thigh 11 X 4 x 3 cm seen on the lateral side of the thigh. No surrounding redness or erythema. No active discharge. Hyperpigmented pinkish discoloration of the skin on the medial side of the left leg. No pedal edema. NEUROLOGICAL EXAM: alert, oriented X3, no focal deficits. - Labs CBC & Chem 7: 05/25/19 04:02 05/25/19 04:02 Labs: Abnormal Lab Results - Last 24 Hours (Table) 05/24/19 05/24/19 05/25/19 Range/Units 16:54 20:12 04:02 RBC 3.25 L (3.80-5.40) m/uL Hgb 8.3 L (11.4-16.0) gm/dL Hct 27.0 L (34.0-46.0) % MCHC 30.6 L (31.0-37.0) g/dL RDW 16.0 H (11.5-15.5) % Lymphocytes # 0.5 L (1.0-4.8) k/uL Chloride (98-107) mmol/L BUN (7-17) mg/dL Creatinine (0.52-1.04) mg/dL Glucose (74-99) mg/dL POC Glucose (mg/dL) 105 H 112 H (75-99) mg/dL 05/25/19 05/25/19 05/25/19 Range/Units 04:02 06:49 12:26 RBC (3.80-5.40) m/uL Hgb (11.4-16.0) gm/dL Hct (34.0-46.0) % MCHC (31.0-37.0) g/dL RDW (11.5-15.5) % Lymphocytes # (1.0-4.8) k/uL Chloride 112 H (98-107) mmol/L BUN 40 H (7-17) mg/dL Creatinine 1.77 H (0.52-1.04) mg/dL Glucose 107 H (74-99) mg/dL POC Glucose (mg/dL) 120 H 126 H (75-99) mg/dL Microbiology - Last 24 Hours (Table) 05/23/19 10:30 Anaerobic Culture - Preliminary Leg - Left 05/23/19 10:30 Anaerobic Culture - Preliminary Hip - Left 05/23/19 10:30 Gram Stain - Final Hip - Left Wound Culture - Final Pseudomonas aeruginosa 05/23/19 10:30 Gram Stain - Final Leg - Left Wound Culture - Final Pseudomonas aeruginosa 05/22/19 00:35 Blood Culture - Preliminary Blood No Growth after 48 hours 05/23/19 17:55 Urine Culture - Preliminary Urine,Catheterized Gram Neg Bacilli Assessment and Plan Plan: -Hypotension: Probably secondary to hypovolemia and sepsis cannot be ruled out as well. Patient will be can you done IV fluids nephrology is following the p atient kidney function is improving at this time blood pressure improved. -Possible sepsis secondary to either an infection or urinary tract infection with gram negative bacilli in the urine and patient has Pseudomonas in the wound patient is presently on cefepime disease will be continued infectious disease is following the patient -New-onset atrial fibrillation continue with anticoagulation patient is heart rate controlled -Deconditioning because of above-mentioned medical problems patient probably will need placement to subacute rehabilitation PT and OT with was consult that. Chronic ulcer of the left thigh Chronic venous stasis Morbid obesity with BMI of 43.6 Chronic debility
[2019-05-25] MEDS: SODIUM CHLORIDE 0.9% 1,000 ML IV SCH (16:02)
--- NOTE | 2019-05-25 17:08 | P.PN ---
Subjective Progress Note Date: 05/25/19 This is a 63-year-old female with history of diabetes and hypertension who was brought to the hospital with extreme weakness. She was found to be in atrial fibrillation with controlled and corresponds and also had evidence of acute renal failure. Patient also seemed to be dehydrated. She is also has some ulcers in the legs. She seemed to be much more comfortable today. Her heart rate is controlled. Her blood pressure is borderline. We'll going Back the dose of the metoprolol to 25 mg by mouth twice a day. Her echo showed good LV function. We'll continue rest of the management. No further cardiac workup at this time. She is also on anticoagulation therapy. 05/25/2019: This patient with history of diabetes, hypertension who was admitted to the hospital with possible sepsis, UTI, and also wound infection. She was found to be in atrial fibrillation. Her heart rate is controlled. Patient is being initiated on Eliquis is 5 mg by mouth twice a day. Rest of the management to be continued. Her LV function is preserved. We'll follow Objective - Vital Signs Vital signs: Vital Signs Temp 98.3 F 05/25/19 08:00 Pulse 76 05/25/19 12:00 Resp 22 05/25/19 12:00 BP 97/55 05/25/19 12:00 Pulse Ox 89 L 05/25/19 12:00 Intake & Output 05/24/19 05/25/19 05/25/19 18:59 06:59 18:59 Intake Total 1180.481 462 Output Total 800 200 200 Balance 380.481 -200 262 Weight 107 kg Intake: IV 1040 240 Sodium Chloride 0.9% 1, 1040 240 000 ml @ 60 mls/hr IV . [id number] [facility] Rx#:[id number] Intake, IV Titration 140.481 Amount Heparin Sod,Pork in 0.45% 140.481 NaCl 25,000 unit In 0.45 % NaCl 1 250ml.bag @ 9.89 UNITS/KG/HR 10.004 mls/ hr IV .Q24H [facility] Rx#: [id number] Oral 222 Output: Urine 800 200 200 Other: Voiding Method Incontinent Incontinent Incontinent # Bowel Movements 1 - Exam GENERAL EXAM: Patient is alert and oriented and doesn't appear to be in any acute distress HEENT: Normocephalic. Normal reaction of pupils, equal size, normal range of extraocular motion. No erythema or exudates in the throat. NECK: No masses, no nuchal rigidity. CHEST: No chest wall deformity. LUNGS: Equal air entry with no crackles or wheeze. HEART: S1 and S2 normal with no audible mumurs or gallops. Regular rhythm, femorals equal on both sides.. ABDOMEN: No hepatosplenomegaly, normal bowel sounds, no guarding or rigidity. SKIN: No rashes CENTRAL NERVOUS SYSTEM: No focal deficits. EXTREMITIES: Ulcers present - Labs CBC & Chem 7: 05/25/19 04:02 05/25/19 04:02 Labs: Abnormal Lab Results - Last 24 Hours (Table) 05/24/19 05/24/19 05/25/19 Range/Units 16:54 20:12 04:02 RBC 3.25 L (3.80-5.40) m/uL Hgb 8.3 L (11.4-16.0) gm/dL Hct 27.0 L (34.0-46.0) % MCHC 30.6 L (31.0-37.0) g/dL RDW 16.0 H (11.5-15.5) % Lymphocytes # 0.5 L (1.0-4.8) k/uL Chloride (98-107) mmol/L BUN (7-17) mg/dL Creatinine (0.52-1.04) mg/dL Glucose (74-99) mg/dL POC Glucose (mg/dL) 105 H 112 H (75-99) mg/dL 05/25/19 05/25/19 05/25/19 Range/Units 04:02 06:49 12:26 RBC (3.80-5.40) m/uL Hgb (11.4-16.0) gm/dL Hct (34.0-46.0) % MCHC (31.0-37.0) g/dL RDW (11.5-15.5) % Lymphocytes # (1.0-4.8) k/uL Chloride 112 H (98-107) mmol/L BUN 40 H (7-17) mg/dL Creatinine 1.77 H (0.52-1.04) mg/dL Glucose 107 H (74-99) mg/dL POC Glucose (mg/dL) 120 H 126 H (75-99) mg/dL Microbiology - Last 24 Hours (Table) 05/23/19 10:30 Anaerobic Culture - Preliminary Leg - Left 05/23/19 10:30 Anaerobic Culture - Preliminary Hip - Left 05/23/19 10:30 Gram Stain - Final Hip - Left Wound Culture - Final Pseudomonas aeruginosa 05/23/19 10:30 Gram Stain - Final Leg - Left Wound Culture - Final Pseudomonas aeruginosa 05/22/19 00:35 Blood Culture - Preliminary Blood No Growth after 48 hours 05/23/19 17:55 Urine Culture - Preliminary Urine,Catheterized Gram Neg Bacilli Assessment and Plan (1) Hypertension Current Visit: Yes Status: Acute Code(s): I10 - ESSENTIAL (PRIMARY) HYPERTENSION SNOMED Code(s): 66035040 (2) GARRY (acute kidney injury) Current Visit: Yes Status: Acute Code(s): N17.9 - ACUTE KIDNEY FAILURE, UNSPECIFIED SNOMED Code(s): 68618586 (3) New onset atrial fibrillation Current Visit: Yes Status: Acute Code(s): I48.91 - UNSPECIFIED ATRIAL FIBRILLATION SNOMED Code(s): 57386548 (4) Anemia Current Visit: No Status: Acute Priority: High Code(s): D64.9 - ANEMIA, UNSPECIFIED SNOMED Code(s): 997341166 (5) Cardiomyopathy Current Visit: Yes Status: Acute Code(s): I42.9 - CARDIOMYOPATHY, UNSPECIFIED SNOMED Code(s): 05325146 Plan: Patient's heart rate is controlled. We'll continue anti-cognition therapy. 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
[2019-05-25 17:09] LABS: Glucose,Whole Blood 110 mg/dL (75-99)
[2019-05-25 17:09] LABS: Glucose,Whole Blood 99 mg/dL (75-99)
[2019-05-25 20:27] LABS: Glucose,Whole Blood 98 mg/dL (75-99)
[2019-05-25] MEDS: APIXABAN 5 MG TAB PO SCH (20:58)
[2019-05-25] MEDS: Acetaminophen-Codeine 300-30mg TAB PO PRN (20:58)
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
[2019-05-26 03:52] LABS: Hemoglobin A1C 5.6 % (4.0-6.0)
[2019-05-26 05:36] LABS: Anisocytosis Slight; Basophils % (A) 0 %; Eosinophils # (A) 0.3 k/uL (0-0.7); Eosinophils % (A) 4 %; HCT 28.2 % (34.0-46.0); HGB 8.3 gm/dL (11.4-16.0); Hypochromasia Marked; Lymphocytes # (A) 0.7 k/uL (1.0-4.8); Lymphocytes % (A) 11 %; MCH 25.4 pg (25.0-35.0); MCHC 29.4 g/dL (31.0-37.0); MCV 86.3 fL (80.0-100.0); Mean Platelet Volume 7.3; Monocytes # (A) 0.4 k/uL (0-1.0); Monocytes % (A) 6 %; Neutrophils # (A) 4.6 k/uL (1.3-7.7); Neutrophils % (A) 77 %; Platelet Count 265 k/uL (150-450); Poikilocytosis Slight; RBC 3.27 m/uL (3.80-5.40)
[2019-05-26 05:43] LABS: Calcium 8.4 mg/dL (8.4-10.2); Potassium 4.3 mmol/L (3.5-5.1)
[2019-05-26] MEDS: LEVOTHYROXINE 25 MCG TAB PO SCH (06:37)
[2019-05-26] MEDS: CEFEPIME 2 GM in SODIUM CHLORIDE 0.9% 100 ML IVPB SCH (06:38)
[2019-05-26 06:44] LABS: Glucose,Whole Blood 107 mg/dL (75-99)
[2019-05-26] MEDS: INSULIN ASPART (NovoLOG) 100 UNIT/ML VIAL SQ SCH ×4 (06:46→22:15)
[2019-05-26] MEDS: SERTRALINE 25 MG TAB PO SCH (08:36)
[2019-05-26] MEDS: Acetaminophen-Codeine 300-30mg TAB PO PRN ×2 (08:37→13:25)
[2019-05-26] MEDS: PANTOPRAZOLE 40 MG TABLET PO SCH (08:38)
[2019-05-26] MEDS: APIXABAN 5 MG TAB PO SCH ×2 (08:38→22:19)
[2019-05-26] MEDS: METOPROLOL TARTRATE 25 MG TAB PO SCH ×2 (08:38→22:19)
[2019-05-26] MEDS: CHOLECALCIFEROL 1,000 UNIT TAB PO SCH (08:39)
[2019-05-26] MEDS: FERROUS SULFATE 325 MG TAB PO SCH ×2 (08:39→22:19)
[2019-05-26] MEDS: SODIUM BICARBONATE TAB 650 MG TAB PO SCH ×4 (08:40→22:19)
--- NOTE | 2019-05-26 09:07 | P.PN ---
Subjective Progress Note Date: 05/26/19 This is a 63-year-old female with history of diabetes and hypertension who was brought to the hospital with extreme weakness. She was found to be in atrial fibrillation with controlled and corresponds and also had evidence of acute renal failure. Patient also seemed to be dehydrated. She is also has some ulcers in the legs. She seemed to be much more comfortable today. Her heart rate is controlled. Her blood pressure is borderline. We'll going Back the dose of the metoprolol to 25 mg by mouth twice a day. Her echo showed good LV function. We'll continue rest of the management. No further cardiac workup at this time. She is also on anticoagulation therapy. 05/25/2019: This patient with history of diabetes, hypertension who was admitted to the hospital with possible sepsis, UTI, and also wound infection. She was found to be in atrial fibrillation. Her heart rate is controlled. Patient is being initiated on Eliquis is 5 mg by mouth twice a day. Rest of the management to be continued. Her LV function is preserved. We'll follow. 05/26/2019: This patient is admitted to the hospital with sepsis, UTI, and wound infection. She was also found to be in atrial fibrillation with controlled ventricular response, which is a new diagnosis. Her rate is controlled. Patient also had acute renal failure which has improved and her creatinine has come down to 1.4. She is on anticoagulation therapy at this time. Her echo showed good LV function. Patient can continue current medical therapy. From Cardec standpoint. When medically stable, patient could be discharged home. Follow-up as an outpatient Objective - Vital Signs Vital signs: Vital Signs Temp 98.2 F 05/26/19 08:00 Pulse 76 05/26/19 08:00 Resp 20 05/26/19 08:00 BP 127/79 05/26/19 08:00 Pulse Ox 98 05/26/19 08:00 Intake & Output 05/25/19 05/26/19 05/26/19 18:59 06:59 18:59 Intake Total 1222 320 Output Total 600 800 Balance 622 -480 Weight 107 kg Intake: IV 600 60 Sodium Chloride 0.9% 1, 600 60 000 ml @ 60 mls/hr IV . [id number] [facility] Rx#:[id number] Intake, IV Titration 260 Amount Cefepime 2 gm In Sodium 200 Chloride 0.9% 100 ml @ 200 mls/hr IVPB Q24HR@ 0600 [facility] Rx#:[id number] Sodium Chloride 0.9% 1, 60 000 ml @ 60 mls/hr IV . [id number] [facility] Rx#:[id number] Oral 622 Output: Urine 600 800 Other: Voiding Method Incontinent Incontinent - Exam GENERAL EXAM: Patient is alert and oriented and doesn't appear to be in any acute distress HEENT: Normocephalic. Normal reaction of pupils, equal size, normal range of extraocular motion. No erythema or exudates in the throat. NECK: No masses, no nuchal rigidity. CHEST: No chest wall deformity. LUNGS: Equal air entry with no crackles or wheeze. HEART: S1 and S2 normal with no audible mumurs or gallops. Regular rhythm, femorals equal on both sides.. ABDOMEN: No hepatosplenomegaly, normal bowel sounds, no guarding or rigidity. SKIN: No rashes CENTRAL NERVOUS SYSTEM: No focal deficits. EXTREMITIES: Ulcers present - Labs CBC & Chem 7: 05/26/19 04:42 05/26/19 04:46 Labs: Abnormal Lab Results - Last 24 Hours (Table) 05/25/19 05/25/19 05/26/19 Range/Units 12:26 16:55 04:42 RBC 3.27 L (3.80-5.40) m/uL Hgb 8.3 L (11.4-16.0) gm/dL Hct 28.2 L (34.0-46.0) % MCHC 29.4 L (31.0-37.0) g/dL RDW 16.0 H (11.5-15.5) % Lymphocytes # 0.7 L (1.0-4.8) k/uL Chloride (98-107) mmol/L Carbon Dioxide (22-30) mmol/L BUN (7-17) mg/dL Creatinine (0.52-1.04) mg/dL POC Glucose (mg/dL) 126 H 110 H (75-99) mg/dL 05/26/19 05/26/19 Range/Units 04:46 06:42 RBC (3.80-5.40) m/uL Hgb (11.4-16.0) gm/dL Hct (34.0-46.0) % MCHC (31.0-37.0) g/dL RDW (11.5-15.5) % Lymphocytes # (1.0-4.8) k/uL Chloride 111 H (98-107) mmol/L Carbon Dioxide 20 L (22-30) mmol/L BUN 30 H (7-17) mg/dL Creatinine 1.46 H (0.52-1.04) mg/dL POC Glucose (mg/dL) 107 H (75-99) mg/dL Microbiology - Last 24 Hours (Table) 05/22/19 00:35 Blood Culture - Preliminary Blood No Growth after 72 hours 05/23/19 17:55 Urine Culture - Final Urine,Catheterized Pseudomonas aeruginosa 05/23/19 10:30 Anaerobic Culture - Preliminary Leg - Left 05/23/19 10:30 Anaerobic Culture - Preliminary Hip - Left 05/23/19 10:30 Gram Stain - Final Hip - Left Wound Culture - Final Pseudomonas aeruginosa 05/23/19 10:30 Gram Stain - Final Leg - Left Wound Culture - Final Pseudomonas aeruginosa Assessment and Plan (1) Hypertension Current Visit: Yes Status: Acute Code(s): I10 - ESSENTIAL (PRIMARY) HYPERTENSION SNOMED Code(s): 78998751 (2) GARRY (acute kidney injury) Current Visit: Yes Status: Acute Code(s): N17.9 - ACUTE KIDNEY FAILURE, UNSPECIFIED SNOMED Code(s): 85749414 (3) New onset atrial fibrillation Current Visit: Yes Status: Acute Code(s): I48.91 - UNSPECIFIED ATRIAL FIBRILLATION SNOMED Code(s): 51970638 (4) Anemia Current Visit: No Status: Acute Priority: High Code(s): D64.9 - ANEMIA, UNSPECIFIED SNOMED Code(s): 450768842 (5) Cardiomyopathy Current Visit: Yes Status: Acute Code(s): I42.9 - CARDIOMYOPATHY, UNSPECIFIED SNOMED Code(s): 44906885 Plan: Cardiac-burnett, patient is stable. Heart rate is controlled. Patient is on anticoagulation. We'll follow when necessary and follow-up as an outpatient upon discharge
--- NOTE | 2019-05-26 11:29 | PN ---
PROGRESS NOTE Patient is seen for followup for acute kidney injury. Her renal function continues to improve. Creatinine is down to 1.46 from 3.4 on initial admission. IV fluids are running at 60 mL an hour. PHYSICAL EXAMINATION: Patient is comfortable. Blood pressure is 127/79, heart rate 96 per minute. She is afebrile. Examination of the heart S1, S2. Examination of the lungs, bilateral breath sounds are heard. Abdomen is soft, nontender, obese. Examination of the lower extremities shows left leg currently wrapped. Trace edema is noted. LABS: Show sodium 139, potassium 4.3, chloride 111, CO2 is 20, BUN 30, serum creatinine 1.46, hemoglobin 8.3 g/dL. ASSESSMENT: 1. Acute kidney injury, acute tubular necrosis, currently nonoliguric and significantly improved. Discontinue intravenous fluids. 2. Urinary tract infection with urine culture growing gram-negative bacilli which grows Pseudomonas, maintained on antibiotics. 3. Recent surgery on the left hip with open wound, maintained on antibiotics. 4. Severe iron-deficiency anemia. Will give her a dose of IV iron today and tomorrow. 5. Anemia, multifactorial including iron deficiency. Will start the patient on intravenous iron. PLAN: DC IV fluids. Start IV iron. Follow up as outpatient. MMODL / IJN: [id number] /
[2019-05-26 11:35] LABS: Glucose,Whole Blood 102 mg/dL (75-99)
[2019-05-26] MEDS: SODIUM FERRIC GLUCONAT-SUCROSE 125 MG in SODIUM CHLORIDE 0.9% 100 ML IVPB SCH (12:41)
--- NOTE | 2019-05-26 13:16 | P.PN ---
Subjective Patient is a pleasant 58-year-old female was admitted and is being treated for pseudomonal wound infection and possible urinary tract infection which is showing gram-negative bacilli along with new onset atrial fibrillation and acute renal failure with creatinine of 3.43 on admission came down to 1.77 with normal baseline of 0.65. Patient appears to be quite tight week and is complaining of some dizziness. Patient's heart rate is well controlled and patient was started on oral anti-coagulation. 05/26/2019 Patient is looking much better today her creatinine continued to improve presently 1.46 patient had a bone scan results of which are still pending. Possibly of discharge tomorrow patient may need a PICC line and IV antibiotics. Constitutional: Is severely fatigued Cardio vascular: denied any chest pain, palpitations Gastrointestinal denied any nausea vomiting Pulmonary: Denied any shortness of breath cough Neurologic denied any new focal deficits All inpatient medications were reviewed and appropriate changes in these medications as dictated in the interval history and assessment and plan. Objective - Vital Signs Vital signs: Vital Signs Temp 97.9 F 05/26/19 12:00 Pulse 71 05/26/19 12:00 Resp 27 H 05/26/19 12:00 BP 131/81 05/26/19 12:00 Pulse Ox 92 L 05/26/19 12:00 Intake & Output 05/25/19 05/26/19 05/26/19 18:59 06:59 18:59 Intake Total 1222 320 60 Output Total 600 800 200 Balance 622 -480 -140 Weight 107 kg Intake: IV 600 60 60 Sodium Chloride 0.9% 1, 600 60 60 000 ml @ 60 mls/hr IV . [id number] [facility] Rx#:[id number] Intake, IV Titration 260 Amount Cefepime 2 gm In Sodium 200 Chloride 0.9% 100 ml @ 200 mls/hr IVPB Q24HR@ 0600 [facility] Rx#:[id number] Sodium Chloride 0.9% 1, 60 000 ml @ 60 mls/hr IV . [id number] [facility] Rx#:[id number] Oral 622 Output: Urine 600 800 200 Other: Voiding Method Incontinent Incontinent - Exam GEN. APPEARANCE: Obese. Not lethargic sitting on the chair looks much better HEAD EXAM: atraumatic, normocephalic, normal inspection EYE EXAM: No pallor. No icterus. white discharge at the corners of the eyes noticed ENT EXAM: Poor oral hygiene. Multiple dental caries. NECK EXAM: No thyromegaly. RESPIRATORY EXAM: Bilateral breath sounds are positive. No wheezing or crackles. CARDIOVASCULAR EXAM: Irregularly irregular. S1 and S2 heard. GI/ABDOMINAL EXAM: soft, normal bowel sounds. Absent: distended, tenderness, guarding, rebound, rigid. Excoriation of the skin in both inguinal areas. EXTREMITIES EXAM: Left lower leg - an ulcer of left thigh 11 X 4 x 3 cm seen on the lateral side of the thigh. No surrounding redness or erythema. No active discharge. Hyperpigmented pinkish discoloration of the skin on the medial side of the left leg. No pedal edema. NEUROLOGICAL EXAM: alert, oriented X3, no focal deficits. - Labs CBC & Chem 7: 05/26/19 04:42 05/26/19 04:46 Labs: Abnormal Lab Results - Last 24 Hours (Table) 05/25/19 05/26/19 05/26/19 Range/Units 16:55 04:42 04:46 RBC 3.27 L (3.80-5.40) m/uL Hgb 8.3 L (11.4-16.0) gm/dL Hct 28.2 L (34.0-46.0) % MCHC 29.4 L (31.0-37.0) g/dL RDW 16.0 H (11.5-15.5) % Lymphocytes # 0.7 L (1.0-4.8) k/uL Chloride 111 H (98-107) mmol/L Carbon Dioxide 20 L (22-30) mmol/L BUN 30 H (7-17) mg/dL Creatinine 1.46 H (0.52-1.04) mg/dL POC Glucose (mg/dL) 110 H (75-99) mg/dL 05/26/19 05/26/19 Range/Units 06:42 11:31 RBC (3.80-5.40) m/uL Hgb (11.4-16.0) gm/dL Hct (34.0-46.0) % MCHC (31.0-37.0) g/dL RDW (11.5-15.5) % Lymphocytes # (1.0-4.8) k/uL Chloride (98-107) mmol/L Carbon Dioxide (22-30) mmol/L BUN (7-17) mg/dL Creatinine (0.52-1.04) mg/dL POC Glucose (mg/dL) 107 H 102 H (75-99) mg/dL Microbiology - Last 24 Hours (Table) 05/22/19 00:35 Blood Culture - Preliminary Blood No Growth after 72 hours 05/23/19 17:55 Urine Culture - Final Urine,Catheterized Pseudomonas aeruginosa 05/23/19 10:30 Anaerobic Culture - Preliminary Leg - Left 05/23/19 10:30 Anaerobic Culture - Preliminary Hip - Left 05/23/19 10:30 Gram Stain - Final Hip - Left Wound Culture - Final Pseudomonas aeruginosa 05/23/19 10:30 Gram Stain - Final Leg - Left Wound Culture - Final Pseudomonas aeruginosa Assessment and Plan Plan: -Hypotension: Probably secondary to hypovolemia and sepsis l. Patient will be can you done IV fluids nephrology is following the patient kidney function is improving at this time blood pressure improved. - sepsis secondary to either wound infection or urinary tract infection. Which are showing Pseudomonas and patient is on cefepime patient will require IV antibiotics -New-onset atrial fibrillation continue with anticoagulation patient is heart rate controlled -Deconditioning because of above-mentioned medical problems patient probably will need placement to subacute rehabilitation PT and OT with was consult that. Chronic ulcer of the left thigh Chronic venous stasis Morbid obesity with BMI of 43.6 Chronic debility
[2019-05-26] MEDS: SODIUM CHLORIDE 0.9% 1,000 ML IV SCH (13:28)
--- NOTE | 2019-05-26 15:15 | NM ---
EXAMINATION TYPE: NM bone 3 phase DATE OF EXAM: 05/26/2019 COMPARISON: NONE HISTORY: Left hip pain possible osteomyelitis Triple phase bone scintigraphy was performed following the injection of 24 mCi Tc 99m MDP. Immediate images and 3 hours post injection images acquired. FINDINGS: There is increased perfusion to the left hip area. There is increased soft tissue uptake in the region of the left. Delayed imaging suggest possible previous surgery involving the left hip increased uptake is seen wit hin the region of the femoral neck. No x-ray available for comparison.. IMPRESSION: 1. Increased flow, soft tissue uptake involving the left hip. Questionable photopenic defect involvin g the proximal left femur may be on the basis of previous surgery. This require x-ray correlation. Po sttraumatic or postinfectious (cellulitis) etiology in the differential diagnosis. There is no intens e uptake seen to suggest osteomyelitis.
[2019-05-26 17:04] LABS: Glucose,Whole Blood 90 mg/dL (75-99)
[2019-05-26] MEDS: ALPRAZolam 1 MG TAB PO PRN (19:09)
[2019-05-26 21:41] LABS: Glucose,Whole Blood 111 mg/dL (75-99)
[2019-05-27 05:59] LABS: Anisocytosis Slight; Basophils % (A) 1 %; Eosinophils # (A) 0.1 k/uL (0-0.7); Eosinophils % (A) 2 %; HCT 27.5 % (34.0-46.0); HGB 8.6 gm/dL (11.4-16.0); Hypochromasia Marked; Lymphocytes # (A) 0.7 k/uL (1.0-4.8); Lymphocytes % (A) 13 %; MCH 25.6 pg (25.0-35.0); MCHC 31.1 g/dL (31.0-37.0); MCV 82.3 fL (80.0-100.0); Mean Platelet Volume 7.2; Monocytes # (A) 0.3 k/uL (0-1.0); Monocytes % (A) 6 %; Neutrophils # (A) 4.4 k/uL (1.3-7.7); Neutrophils % (A) 78 %; Platelet Count 238 k/uL (150-450); RBC 3.35 m/uL (3.80-5.40); WBC 5.6 k/uL (3.8-10.6)
[2019-05-27 06:09] LABS: Calcium 8.6 mg/dL (8.4-10.2); Potassium 3.6 mmol/L (3.5-5.1)
[2019-05-27] MEDS: INSULIN ASPART (NovoLOG) 100 UNIT/ML VIAL SQ SCH ×3 (06:29→19:12)
[2019-05-27] MEDS: LEVOTHYROXINE 25 MCG TAB PO SCH (06:30)
[2019-05-27] MEDS: CEFEPIME 2 GM in SODIUM CHLORIDE 0.9% 100 ML IVPB SCH (06:30)
[2019-05-27] MEDS: PANTOPRAZOLE 40 MG TABLET PO SCH (06:30)
[2019-05-27] MEDS: SODIUM FERRIC GLUCONAT-SUCROSE 125 MG in SODIUM CHLORIDE 0.9% 100 ML IVPB SCH (08:40)
[2019-05-27] MEDS: METOPROLOL TARTRATE 25 MG TAB PO SCH ×3 (09:03→19:54)
[2019-05-27] MEDS: FERROUS SULFATE 325 MG TAB PO SCH ×2 (09:03→19:54)
[2019-05-27] MEDS: SERTRALINE 25 MG TAB PO SCH (09:03)
[2019-05-27] MEDS: SODIUM BICARBONATE TAB 650 MG TAB PO SCH ×4 (09:03→19:54)
[2019-05-27] MEDS: CHOLECALCIFEROL 1,000 UNIT TAB PO SCH (09:03)
[2019-05-27] MEDS: Acetaminophen-Codeine 300-30mg TAB PO PRN (09:04)
--- NOTE | 2019-05-27 09:28 | P.PN ---
Subjective Progress Note Date: 05/27/19 This is a 63-year-old female with history of diabetes and hypertension who was brought to the hospital with extreme weakness. She was found to be in atrial fibrillation with controlled and corresponds and also had evidence of acute renal failure. Patient also seemed to be dehydrated. She is also has some ulcers in the legs. She seemed to be much more comfortable today. Her heart rate is controlled. Her blood pressure is borderline. We'll going Back the dose of the metoprolol to 25 mg by mouth twice a day. Her echo showed good LV function. We'll continue rest of the management. No further cardiac workup at this time. She is also on anticoagulation therapy. 05/25/2019: This patient with history of diabetes, hypertension who was admitted to the hospital with possible sepsis, UTI, and also wound infection. She was found to be in atrial fibrillation. Her heart rate is controlled. Patient is being initiated on Eliquis is 5 mg by mouth twice a day. Rest of the management to be continued. Her LV function is preserved. We'll follow. 05/26/2019: This patient is admitted to the hospital with sepsis, UTI, and wound infection. She was also found to be in atrial fibrillation with controlled ventricular response, which is a new diagnosis. Her rate is controlled. Patient also had acute renal failure which has improved and her creatinine has come down to 1.4. She is on anticoagulation therapy at this time. Her echo showed good LV function. Patient can continue current medical therapy. From Cardec standpoint. When medically stable, patient could be discharged home. Follow-up as an outpatient. 05/27/2019: This patient remains stable. Still in atrial fibrillation with controlled ventricular response. Her blood pressures running high. If necessary, we'll may add Norvasc 5 mg. Patient probably will be discharged home today. Her creatinine has improved. Further. She is on Eliquis. Lungs are clear. Heart is irregular. Follow-up in the office in couple of weeks Objective - Vital Signs Vital signs: Vital Signs Temp 97.9 F 05/27/19 08:00 Pulse 80 05/27/19 08:00 Resp 27 H 05/27/19 08:00 BP 151/65 05/27/19 08:00 Pulse Ox 94 L 05/27/19 08:00 Intake & Output 05/26/19 05/27/19 05/27/19 18:59 06:59 18:59 Intake Total 310 150 Output Total 550 500 Balance -240 -350 Weight 104.9 kg Intake: IV 60 Sodium Chloride 0.9% 1, 60 000 ml @ 60 mls/hr IV . [id number] [facility] Rx#:[id number] Oral 250 150 Output: Urine 550 500 Other: Voiding Method Incontinent Incontinent # Voids 1 # Bowel Movements 1 - Exam GENERAL EXAM: Patient is alert and oriented and doesn't appear to be in any acute distress HEENT: Normocephalic. Normal reaction of pupils, equal size, normal range of extraocular motion. No erythema or exudates in the throat. NECK: No masses, no nuchal rigidity. CHEST: No chest wall deformity. LUNGS: Equal air entry with no crackles or wheeze. HEART: S1 and S2 normal with no audible mumurs or gallops. Regular rhythm, femorals equal on both sides.. ABDOMEN: No hepatosplenomegaly, normal bowel sounds, no guarding or rigidity. SKIN: No rashes CENTRAL NERVOUS SYSTEM: No focal deficits. EXTREMITIES: Ulcers present - Labs CBC & Chem 7: 05/27/19 05:22 05/27/19 05:22 Labs: Abnormal Lab Results - Last 24 Hours (Table) 05/26/19 05/26/19 05/27/19 Range/Units 11:31 21:38 05:22 RBC 3.35 L (3.80-5.40) m/uL Hgb 8.6 L (11.4-16.0) gm/dL Hct 27.5 L (34.0-46.0) % RDW 17.0 H (11.5-15.5) % Lymphocytes # 0.7 L (1.0-4.8) k/uL Chloride (98-107) mmol/L BUN (7-17) mg/dL Creatinine (0.52-1.04) mg/dL Glucose (74-99) mg/dL POC Glucose (mg/dL) 102 H 111 H (75-99) mg/dL 05/27/19 Range/Units 05:22 RBC (3.80-5.40) m/uL Hgb (11.4-16.0) gm/dL Hct (34.0-46.0) % RDW (11.5-15.5) % Lymphocytes # (1.0-4.8) k/uL Chloride 109 H (98-107) mmol/L BUN 26 H (7-17) mg/dL Creatinine 1.32 H (0.52-1.04) mg/dL Glucose 117 H (74-99) mg/dL POC Glucose (mg/dL) (75-99) mg/dL Microbiology - Last 24 Hours (Table) 05/22/19 00:35 Blood Culture - Preliminary Blood No Growth after 96 hours Assessment and Plan (1) Hypertension Current Visit: Yes Status: Acute Code(s): I10 - ESSENTIAL (PRIMARY) HYPERTENSION SNOMED Code(s): 24444647 (2) GARRY (acute kidney injury) Current Visit: Yes Status: Acute Code(s): N17.9 - ACUTE KIDNEY FAILURE, UNSPECIFIED SNOMED Code(s): 75253913 (3) New onset atrial fibrillation Current Visit: Yes Status: Acute Code(s): I48.91 - UNSPECIFIED ATRIAL FIBRILLATION SNOMED Code(s): 43517549 (4) Anemia Current Visit: No Status: Acute Priority: High Code(s): D64.9 - ANEMIA, UNSPECIFIED SNOMED Code(s): 106720949 (5) Cardiomyopathy Current Visit: Yes Status: Acute Code(s): I42.9 - CARDIOMYOPATHY, UNSPECIFIED SNOMED Code(s): 92350484 Plan: Patient is critically stable. Continue current medical therapy. May add Norvasc 5 mg the blood pressure doesn't come down. Possible discharge
[2019-05-27] MEDS: POTASSIUM CHLORIDE ER 20 MEQ TAB.ER PO SCH ×2 (10:29→11:45)
[2019-05-27] MEDS: ALPRAZolam 1 MG TAB PO PRN ×2 (10:45→19:12)
[2019-05-27] MEDS ORDERED: amLODIPine 5 MG TAB PO STA (11:00)
--- NOTE | 2019-05-27 11:12 | P.DS ---
Providers Date of admission: 05/23/19 00:57 Attending physician: Rogerio Sifuentes Consults: 05/23/19 00:58 Consult Physician Routine Consulting Provider: Koffi Jackson Consult Reason/Comments: edd Do you want consulting provider notified?: Yes 05/23/19 06:18 Consult Physician Routine Consulting Provider: [facility] Consult Reason/Comments: New onset A-fib Do you want consulting provider notified?: Yes, Notify in am 05/23/19 09:31 Consult Physician Routine Consulting Provider: Solomon Brito Consult Reason/Comments: chronic leg wound Do you want consulting provider notified?: Yes Primary care physician: [facility] Course: Patient is a pleasant 58-year-old female was admitted and is being treated for pseudomonal wound infection and possible urinary tract infection which is showing gram-negative bacilli along with new onset atrial fibrillation and acute renal failure with creatinine of 3.43 on admission came down to 1.77 with normal baseline of 0.65. Patient appears to be quite tight week and is complaining of some dizziness. Patient's heart rate is well controlled and patient was started on oral anti-coagulation. 05/26/2019 Patient is looking much better today her creatinine continued to improve presently 1.46 patient had a bone scan results of which are still pending. Possibly of discharge tomorrow patient may need a PICC line and IV antibiotics. 05/27/2019 Patient's bone scan was unable to completely rule out osteomyelitis because of prostheses in that area. Infectious disease is recommending for 2 days of IV antibiotic in the form of cefepime 2 g twice a day with weekly CBC, CRP and a BMP. She will be discharged today to home with home care. Patient will be started back on Eliquis and beta alejandro. MIN inhibitor and hydrochlorothiazide along with metformin were discontinued because of acute renal failure which is improving present creatinine is 1.3 Exam GEN. APPEARANCE: Obese. Not lethargic sitting on the chair looks much better HEAD EXAM: atraumatic, normocephalic, normal inspection EYE EXAM: No pallor. No icterus. white discharge at the corners of the eyes noticed ENT EXAM: Poor oral hygiene. Multiple dental caries. NECK EXAM: No thyromegaly. RESPIRATORY EXAM: Bilateral breath sounds are positive. No wheezing or crackles. CARDIOVASCULAR EXAM: Irregularly irregular. S1 and S2 heard. GI/ABDOMINAL EXAM: soft, normal bowel sounds. Absent: distended, tenderness, guarding, rebound, rigid. Excoriation of the skin in both inguinal areas. EXTREMITIES EXAM: Left lower leg - an ulcer of left thigh 11 X 4 x 3 cm seen on the lateral side of the thigh. No surrounding redness or erythema. No active discharge. Hyperpigmented pinkish discoloration of the skin on the medial side of the left leg. No pedal edema. NEUROLOGICAL EXAM: alert, oriented X3, no focal deficits. Assessment and Plan Plan: -Hypotension: Probably secondary to hypovolemia and sepsis resolved now MIN inhibitor and and had good thiazide are being discontinued but may need to be restarted as an outpatient at a low-dose. - sepsis secondary to either wound infection or urinary tract infection. Which are showing Pseudomonas and patient is on cefepime patient will require IV antibiotics, possibly a foster mellitus, be ruled out -New-onset atrial fibrillation on anticoagulation patient is heart rate controlled -Deconditioning physical therapy and home nursing Chronic ulcer of the left thigh Chronic venous stasis Morbid obesity with BMI of 43.6 Chronic debility Patient Condition at Discharge: Fair Plan - Discharge Summary Discharge Rx Participant: Yes New Discharge Prescriptions: New Cefepime HCl [Maxipime] 2 gm IV Q12H #84 vial Apixaban [Eliquis] 5 mg PO BID #60 tab Ferrous Sulfate [Feosol] 325 mg PO BID #60 tab Metoprolol Tartrate [Lopressor] 25 mg PO BID #30 tab Sodium Bicarbonate Tab 650 mg PO BID #60 tab Ranitidine HCl [Zantac] 150 mg PO BID #30 tab Continue Acetaminophen-Codeine 300-30mg [Tylenol w/codeine #3] 1 tab PO Q6H PRN PRN Reason: Pain ALPRAZolam [Xanax] 2 mg PO TID PRN PRN Reason: Anxiety Levothyroxine Sodium [Synthroid] 25 mcg PO DAILY Sertraline HCl [Zoloft] 75 mg PO DAILY Metoprolol Tartrate [Lopressor] 100 mg PO BID Cholecalciferol [Vitamin D3 (25 Mcg = 1000 Iu)] 1,000 unit PO DAILY Ferrous Sulfate [Feosol] 325 mg PO BID Discontinued Lisinopril 40 mg PO DAILY metFORMIN HCL 500 mg PO BID Hydrochlorothiazide [Hydrodiuril] 25 mg PO DAILY Cephalexin [Keflex] 500 mg PO QID Discharge Medication List ALPRAZolam [Xanax] 2 mg PO TID PRN 04/11/14 [History] Acetaminophen-Codeine 300-30mg [Tylenol w/codeine #3] 1 tab PO Q6H PRN 04/11/14 [History] Cholecalciferol [Vitamin D3 (25 Mcg = 1000 Iu)] 1,000 unit PO DAILY 05/22/19 [History] Ferrous Sulfate [Feosol] 325 mg PO BID 05/22/19 [History] Levothyroxine Sodium [Synthroid] 25 mcg PO DAILY 05/22/19 [History] Metoprolol Tartrate [Lopressor] 100 mg PO BID 05/22/19 [History] Sertraline HCl [Zoloft] 75 mg PO DAILY 05/22/19 [History] Cefepime HCl [Maxipime] 2 gm IV Q12H #84 vial 05/26/19 [Rx] Apixaban [Eliquis] 5 mg PO BID #60 tab 05/27/19 [Rx] Ferrous Sulfate [Feosol] 325 mg PO BID #60 tab 05/27/19 [Rx] Metoprolol Tartrate [Lopressor] 25 mg PO BID #30 tab 05/27/19 [Rx] Ranitidine HCl [Zantac] 150 mg PO BID #30 tab 05/27/19 [Rx] Sodium Bicarbonate Tab 650 mg PO BID #60 tab 05/27/19 [Rx] Follow up Appointment(s)/Referral(s): Juju Hernandez MD [Primary Care Provider] - 3 Days [facility], [NON-STAFF] - 1-2 Days [facility], [REFERRING] - As Needed [facility] [NON-STAFF] - As Needed (upon d'c)
[2019-05-27 11:34] LABS: Glucose,Whole Blood 115 mg/dL (75-99)
[2019-05-27] MEDS ORDERED: LIDOCAINE 1% INJ 10MG/ML (20 ML MDV) SQ ONE (11:59)
--- NOTE | 2019-05-27 12:39 | XR ---
EXAMINATION TYPE: XR chest 1V portable DATE OF EXAM: 05/27/2019 COMPARISON: 05/23/2019 INDICATION: Line placement TECHNIQUE: Single frontal view of the chest is obtained. FINDINGS: The heart size is moderately prominent. The pulmonary vasculature is normal. Multiple left pleural effusion may be present. Some left basilar atelectasis could be considered. PICC line enters on the right with the tip in the superior vena cava region. IMPRESSION: 1. Placement of a right-sided PICC line with the tip in the distal superior vena cava region.
[2019-05-27] MEDS: APIXABAN 5 MG TAB PO SCH ×2 (13:37→19:54)
[2019-05-27 16:21] VITALS: BP 164/99; PULSE 80; RESP 26; TEMP 97.9
--- NOTE | 2019-05-27 16:24 | IR ---
EXAMINATION TYPE: IR cvc insert >=5 years DATE OF EXAM: 05/27/2019 COMPARISON: NONE HISTORY: Infection FINDINGS: Maximal barrier technique was utilized. The skin overlying the left basilic vein was local ized with ultrasound and noted to be compressible and patent by ultrasound. An ultrasound image was obtained and submitted on patient's chart. Sterile technique utilized with the ultrasound machine. Th e skin overlying was prepped and draped and Lidocaine used for local anesthesia. A skin jersey was mad e with a scalpel. Access was gained to the vein under direct ultrasound guidance with a 21-gauge nee dle and a 0.018 inch wire was advanced. Access site was dilated with a peel-away sheath and the cath eter tailored to length. Catheter advanced centrally and a post procedure chest x-ray verified place ment with the tip in the superior vena cava. Catheter was fixed to the skin and a sterile dressing p laced. Hemostasis achieved and the catheter was aspirated and flushed with sterile saline. The vivek ent remained in stable condition. IMPRESSION: STATUS POST ULTRASOUND GUIDED PICC LINE PLACEMENT, READY FOR USE. THIS PROCEDURE WAS PER FORMED BY THE UNDERSIGNED.
[2019-05-27 16:42] LABS: Glucose,Whole Blood 116 mg/dL (75-99)
--- NOTE | 2019-05-27 19:57 | PN ---
PROGRESS NOTE Patient is seen for followup for acute kidney injury. She is currently resting comfortably. Patient will be getting a PICC line for long-term antibiotics. PHYSICAL EXAMINATION: This morning, blood pressure was 151/65, heart rate of 71 per minute. Patient is afebrile. Examination of the heart S1, S2. Examination of the lungs, bilateral breath sounds are heard. Abdomen is soft, nontender, and obese. Examination of lower extremities shows no significant edema. LAB: Show sodium 139, potassium 3.6, BUN 26, serum creatinine 1.32, hemoglobin 8.6 g/dL. ASSESSMENT: 1. Acute kidney injury, acute tubular necrosis, currently significantly improved. Creatinine is down to 1.3. 2. Urinary tract infection with urine culture growing Pseudomonas. 3. Severe iron deficiency maintained on IV iron. 4. Anemia, multifactorial including iron deficiency. 5. Mild metabolic acidosis on initial admission, currently improved. PLAN: We can proceed with PICC line in the right arm. Repeat labs as outpatient to follow up on renal function. MMODL / IJN: [id number] /
== END 2019-05-27 21:00 | disposition home health service (06) | DRG 559 ==
LOC: EC 22:55 → 2SICU 05-23 00:57
PROVIDERS: ADMIT Internal Medicine; ATTEND Internal Medicine
PROC: B548ZZA Ultrasonography of Superior Vena Cava, Guidance (ICD-10-PCS; principal; 2019-05-27 08:30)
PROC: 02HV33Z Insertion of Infusion Device into Superior Vena Cava, Percutaneous Approach (ICD-10-PCS; principal; 2019-05-27 08:30)
DX: T84.69XA Infection and inflammatory reaction due to internal fixation device of other site, initial encounter (principal); A41.52 Sepsis due to Pseudomonas; N17.0 Acute kidney failure with tubular necrosis; E87.2 Acidosis; I42.9 Cardiomyopathy, unspecified; N39.0 Urinary tract infection, site not specified; Z68.41 Body mass index [BMI] 40.0-44.9, adult; L97.829 Non-pressure chronic ulcer of other part of left lower leg with unspecified severity; L97.129 Non-pressure chronic ulcer of left thigh with unspecified severity; B96.5 Pseudomonas (aeruginosa) (mallei) (pseudomallei) as the cause of diseases classified elsewhere; D50.9 Iron deficiency anemia, unspecified; E11.22 Type 2 diabetes mellitus with diabetic chronic kidney disease; E11.319 Type 2 diabetes mellitus with unspecified diabetic retinopathy without macular edema; E66.01 Morbid (severe) obesity due to excess calories; E86.0 Dehydration; E86.1 Hypovolemia; F41.9 Anxiety disorder, unspecified; F31.9 Bipolar disorder, unspecified; G89.29 Other chronic pain; H54.7 Unspecified visual loss; I12.9 Hypertensive chronic kidney disease with stage 1 through stage 4 chronic kidney disease, or unspecified chronic kidney disease; I48.91 Unspecified atrial fibrillation; I83.009 Varicose veins of unspecified lower extremity with ulcer of unspecified site; K02.9 Dental caries, unspecified; N18.9 Chronic kidney disease, unspecified; N28.1 Cyst of kidney, acquired; Z79.01 Long term (current) use of anticoagulants; Z79.2 Long term (current) use of antibiotics; Z79.84 Long term (current) use of oral hypoglycemic drugs; Z79.890 Hormone replacement therapy; Z79.899 Other long term (current) drug therapy; Z82.49 Family history of ischemic heart disease and other diseases of the circulatory system; Z83.3 Family history of diabetes mellitus; V89.2XXS Person injured in unspecified motor-vehicle accident, traffic, sequela; Z88.0 Allergy status to penicillin; Z88.8 Allergy status to other drugs, medicaments and biological substances; Z90.49 Acquired absence of other specified parts of digestive tract
CPT/HCPCS: 36415; 36573; 51701; 71045; 71046; 76770; 78315; 80048; 80053; 81001; 82570; 82803; 83036; 83540; 83550; 83605; 83735; 83880; 84156; 84484; 85025; 85610; 85730; 87040; 87070; 87075; 87077; 87086; 87186; 87205; 93005; 93306; 96374; 99285